=== PATIENT | female | born 1985 | race Caucasian/White ===

== ENCOUNTER 2018-04-20 17:05 | Emergency (ER) | payer SELFPAY ==
[2018-04-20] MEDS ORDERED: CHLORHEXIDINE GLUCONATE 4 % 15 ML UD TOP ONE ×2 (17:41→19:16)
[2018-04-20] MEDS ORDERED: HYDROcodone 5MG/APAP 325MG 1 EA TAB PO ONE (18:08)
[2018-04-20 19:13] VITALS: BP 152/102; TEMP 97.5; O2SAT 98
[2018-04-20] MEDS ORDERED: NEOMYCIN-BACITRACIN-POLYMYXIN 0.9 GM UD TOP ONE (20:00)
--- NOTE | 2018-04-20 20:04 | ED.PDOC ---
History of Present Illness - General Chief Complaint: Lower Extremity Injury Stated Complaint: CUT LEFT TOE Time Seen by Provider: 04/20/18 18:04 Source: patient Exam Limitations: no limitations - History of Present Illness Initial Comments: STEPPED ON A TIN, SHARP PIECE OF METAL. L GREAT TOE LAC. HAD TETANUS UPDATE 1 YR AGO. Occurred: just prior to arrival Pain - Lower Extremity: severe: Left Foot Method of Injury: incised Improving Factors: nothing Worsening Factors: movement Allergies/Adverse Reactions: Allergies NO KNOWN ALLERGY Allergy (Unverified 04/14/13 12:23) Home Medications: Ambulatory Orders Cephalexin Monohydrate [Keflex] 500 mg PO BID #14 cap 04/20/18 Review of Systems - Review of Systems Constitutional: States: no symptoms reported EENTM: States: no symptoms reported Respiratory: States: no symptoms reported Cardiology: States: no symptoms reported Gastrointestinal/Abdominal: States: no symptoms reported Genitourinary: States: no symptoms reported Musculoskeletal: States: no symptoms reported Skin: States: lesions. Denies: rash Neurological: States: no symptoms reported Endocrine: States: no symptoms reported Hematologic/Lymphatic: States: no symptoms reported All other Systems: Reviewed and Negative Past Medical History (General) - Patient Medical History Hx Stroke: No Hx Asthma: No Hx of COPD: No Hx Cardiac Disorders: No Hx Congestive Heart Failure: No Hx Hypertension: No Hx Diabetes: No Hx Cancer: No Hx Hepatitis C: No - Vaccination History Hx Tetanus, Diphtheria Vaccination: Yes Hx Influenza Vaccination: No Hx Pneumococcal Vaccination: No Immunizations Up to Date: No - Social History Hx Tobacco Use: Yes Feels Threatened In Home Enviroment: No Feels Threatened In a Relationship: No Hx Physical Abuse: No Hx Emotional Abuse: No Hx Suspected Abuse: No - Activities of Daily Living Hospice Agency (if applicable):: None - Female History Patient is a Female of Child Bearing Age (10 -59 yrs old): Yes Patient : No - Triage Comment ED Triage Comment: PATIENT HAS A WOUND RT LEG 1ST TOE Family Medical History - Family History Father Living Status: Still Living Hx Family Diabetes: Yes Physical Exam - Physical Exam General Appearance: Alert, Well Nourished Eyes, Ears, Nose, Throat: normal ENT inspection Neck: normal inspection Cardiovascular/Respiratory: regular rate, rhythm, normal peripheral pulses Gastrointestinal/Abdominal: non-tender Back: normal inspection Thigh/Hip: normal inspection, no evidence of injury Leg: normal inspection, no evidence of injury Knee: normal inspection, no evidence of injury Ankle: normal inspection, no evidence of injury Foot: laceration, limited ROM - D/T PAIN, soft tissue tenderness Neuro/Tendon: normal sensation, normal motor functions, normal tendon functions , responds to pain Mental Status: alert, oriented x 3 Skin: other - DORSUM OF L GREAT TOE, 10 CM CURVED, IRREGULAR LAC X 2. Progress - Progress Progress: 04/20/18 20:07 L GREAT TOE LAC REPAIRED. SEE NOTE. - EKG/XRAY/CT CT Ordered: No Procedures - Laceration/Wound Repair Left Toe Wound Length (cm): 10 Wound's Depth, Shape: irregular - INTO SUBQ ADIPOSE LAYER BUT NOT MUSCLE. , flap Wound Explored: contaminated Irrigated w/ Saline (cc's): 150 Betadine Prep?: No - HIBICLENZ Anesthesia: 1% Lidocaine Volume Anesthetic (cc's): 15 Wound Debrided: minimal Wound Repaired With: sutures Suture Size/Type: 3:0, prolene Number of Sutures: 3 - RUNNING UNINTERRUPTED X 3. Layer Closure?: Yes Deep Layer Suture Size/Type: 3:0, vicryl Number Deep Layer Sutures: 6 Sterile Dressing Applied?: Yes Splint Applied?: No Sling Applied?: No Departure - Departure Clinical Impression: Laceration of great toe of left foot, Pain of left great toe Disposition: Discharge to Home or Self Care Condition: Good Departure Forms: ED Discharge - Pt. Copy, Patient Portal Self Enrollment Instructions: Laceration Repair Diet: resume usual diet Activity: increase activity as tolerated Prescriptions: Cephalexin Monohydrate [Keflex] 500 mg PO BID #14 cap Home Medications: Ambulatory Orders Cephalexin Monohydrate [Keflex] 500 mg PO BID #14 cap 04/20/18 Additional Instructions: Please return to ER for suture removal in 12-14 days. Please clean area twice per day, apply bacitracin ointment, and cover with a large band aid.
== END 2018-04-20 20:24 | disposition home or self-care (01) ==
LOC: ER 17:05
DX: S91.112A Laceration without foreign body of left great toe without damage to nail, initial encounter (principal); Z87.891 Personal history of nicotine dependence; W45.8XXA Other foreign body or object entering through skin, initial encounter; Y92.9 Unspecified place or not applicable